=== PATIENT | female | born 1950 | race African-American/Black ===

== ENCOUNTER 2019-03-17 15:54 | Emergency (ER) | payer MEDICARE, OTHER ==
[~2019-03-17] VITALS: Ht 170.2 cm; Wt 64.0 kg
[2019-03-17] MEDS ORDERED: INSU100I28 SQ (16:00)
[2019-03-17] MEDS ORDERED: IBUPROFEN 800MG TABLET PO ONE (17:15)
[2019-03-17 18:05] VITALS: BP 183/96
== END 2019-03-17 18:05 | disposition home or self-care (01) ==
LOC: ER 15:54
DX: M25.561 Pain in right knee (principal); V89.2XXA Person injured in unspecified motor-vehicle accident, traffic, initial encounter; Y93.89 Activity, other specified; Y92.410 Unspecified street and highway as the place of occurrence of the external cause
CPT/HCPCS: 73562; 99283

== ENCOUNTER 2020-12-18 15:34 | Emergency (ER) | payer MEDICARE, MEDICAID ==
[~2020-12-18] VITALS: Ht 165.1 cm; Wt 78.0 kg
[~2020-12-18 15:34] MED LIST: INSU100I28 SQ
[2020-12-18] MEDS: ACETAMINOPHEN 325MG TABLET PO STA ×2 (16:08→18:40)
[2020-12-18] MEDS ORDERED: SODIUM CHLORIDE 0.9% 1,000 ML IV ONE (17:00)
[2020-12-18 17:13] LABS: BASOPHILS % 1.1 % (0.0-2.0); EOSINOPHILS % 2.4 % (0.0-5.0); HEMATOCRIT. 34.8 % (36.0-48.0); HEMOGLOBIN. 11.8 g/dL (12.0-16.0); LYMPHOCYTES % 24.9 % (20.0-50.0); MEAN CORPUSCULAR HEMOGLOBIN 29.5 pg (28.0-32.0); MEAN CORPUSCULAR VOLUME 86.7 fL (81.0-99.0); MEAN PLATELET VOLUME 8.1 fl (7.4-10.4); MONOCYTES % 10.7 % (2.0-8.0); NEUTROPHILS % 60.9 % (40.0-76.0); PLATELET 211 x1000/uL (130-400); RED BLOOD CELL COUNT 4.01 mill/uL (4.2-5.4); RED CELL DISTRIBUTION WIDTH 15.9 % (11.6-14.6)
[2020-12-18 17:20] LABS: CHLORIDE 108 mEq/L (98-107)
[2020-12-18] MEDS: POTASSIUM CHLORIDE 20MEQ TABLET SR PO ONE ×2 (17:45→18:40)
[2020-12-18 21:54] LABS: *AMPHETAMINES SCREEN URINE PRESUMTIVE POSITIVE (NEGATIVE); *BARBITURATES SCREEN URINE NEGATIVE (NEGATIVE); *BENZODIAZEPINES SCREEN URINE NEGATIVE (NEGATIVE); *COCAINE SCREEN URINE NEGATIVE (NEGATIVE); CANNABINOID URINE SCREEN NEGATIVE (NEGATIVE); METHADONE URINE SCREEN NEGATIVE (NEGATIVE); OPIATES URINE SCREEN NEGATIVE (NEGATIVE); PHENCYCLIDINE URINE SCREEN NEGATIVE (NEGATIVE)
[2020-12-18] MEDS ORDERED: KCL 20MEQ/100ML PREMIX 100 ML IV ONE (22:30)
[2020-12-19 05:00] VITALS: BP 117/56
== END 2020-12-19 05:07 | disposition short-term general hospital (02) ==
LOC: ER 15:34
DX: M54.5 Low back pain (principal); G93.40 Encephalopathy, unspecified; E87.6 Hypokalemia; J45.909 Unspecified asthma, uncomplicated; E11.9 Type 2 diabetes mellitus without complications; I10 Essential (primary) hypertension; Z59.0 Homelessness
CPT/HCPCS: 36415; 70450; 72100; 80048; 80305; 80320; 82962; 85025; 93005; 96361; 96374; 99285; J3480; J7030; G0480

== ENCOUNTER 2021-05-05 05:41 | Emergency (ER) | payer MEDICARE, OTHER ==
[~2021-05-05] VITALS: Ht 172.7 cm; Wt 100.0 kg
[2021-05-05 05:43] VITALS: BP 142/78
== END 2021-05-05 07:04 | disposition home or self-care (01) ==
LOC: ER 05:52
DX: R46.89 Other symptoms and signs involving appearance and behavior (principal); J45.909 Unspecified asthma, uncomplicated; E11.9 Type 2 diabetes mellitus without complications; I10 Essential (primary) hypertension; Z59.0 Homelessness
CPT/HCPCS: 99283